=== PATIENT | female | born 1975 | race Caucasian/White ===

== ENCOUNTER 2017-09-12 16:52 | Emergency (ER) | payer OTHER ==
[~2017-09-12] VITALS: Ht 172.7 cm; Wt 66.7 kg
[~2017-09-12 16:52] MED LIST: ALPR.5; BUPR150T2; CLON.5; CYCL10 PO; DULO60; FLUO10; FLUO20; HYDACE10B; HYDACE10B PO; HYDACE5; HYDACE5 PO; HYDACE7.5; HYDHCL10; LORA1; META800 PO; NAPR500 PO; NAPR550 PO; OXYACE5T PO; OXYACE7.5T PO; PENVK500 PO; PHENA200 PO; PRED10 PO; PROG100; RXCYCL10 PO; RXHYDACE PO; RXMETA800 PO; RXNAPNA550 PO; RXOXYACE PO; RXPHEN200 PO; ST JOHN WORT; SULTRIDS PO; TIZA4; TRAZ50
[2017-09-12 17:16] LABS: Source, Urine Voided
[2017-09-12 17:40] LABS: Bilirubin, Urine Neg (Neg); Blood, Urine 2+ (Neg); Glucose Qualitative, Urine Neg (Neg); Ketones, Urine Neg (Neg); Leukocyte Esterase, Urine 2+ (Neg); Nitrite, Urine Neg (Neg); Protein, Urine 2+ (Neg); Urobilinogen, Urine NORM (Normal)
[2017-09-12 17:47] LABS: Appearance, Urine Hazy (Clear); Color, Urine Yellow (P-Yellow)
[2017-09-12 17:48] LABS: Bacteria Mod /hpf; Squamous Epithelial Cells Mod /hpf (Few)
[2017-09-12] MEDS ORDERED: Bactrim Ds Tab1 EACH PO (17:54)
[2018-03-28] MEDS ORDERED: MELA3 (10:25)
[2018-03-28] MEDS ORDERED: PRENATAL TABLE1 EAC2 (10:25)
[2018-03-28] MEDS ORDERED: IBUP800 (10:25)
[2018-03-28] MEDS ORDERED: VARE1 (10:26)
[2018-04-04] MEDS ORDERED: St. John's Wor300 MG (08:10)
== END 2017-09-12 18:01 | disposition home or self-care (01) ==
LOC: ER 16:52
PROVIDERS: Nurse Practitioner Family
DX: N39.0 Urinary tract infection, site not specified (principal); Z79.891 Long term (current) use of opiate analgesic; Z79.2 Long term (current) use of antibiotics; F17.200 Nicotine dependence, unspecified, uncomplicated
CPT/HCPCS: 81001; 81025; 87086; 99283

== ENCOUNTER 2017-11-19 19:44 | Emergency (ER) | payer OTHER ==
[~2017-11-19] VITALS: Ht 172.7 cm; Wt 68.5 kg
[~2017-11-19 19:44] MED LIST changes: +Bactrim Ds Tab1 EACH PO
[2017-11-19] MEDS ORDERED: Amoxicillin500 MG PO (20:28)
[2018-03-28] MEDS ORDERED: PRENATAL TABLE1 EAC2 (10:25)
[2018-03-28] MEDS ORDERED: IBUP800 (10:25)
[2018-03-28] MEDS ORDERED: MELA3 (10:25)
[2018-03-28] MEDS ORDERED: VARE1 (10:26)
[2018-04-04] MEDS ORDERED: St. John's Wor300 MG (08:10)
== END 2017-11-19 21:07 | disposition home or self-care (01) ==
LOC: ER 19:44
DX: K04.7 Periapical abscess without sinus (principal); Z79.2 Long term (current) use of antibiotics; F17.210 Nicotine dependence, cigarettes, uncomplicated
CPT/HCPCS: 99282